=== PATIENT | female | born 1955 | race Caucasian/White ===

== ENCOUNTER 2020-08-21 19:04 | Inpatient (IN) | payer MEDICARE ==
[~2020-08-21] VITALS: Ht 157.5 cm; Wt 80.3 kg
[2020-08-21] MEDS ORDERED: DEXAMETHASONE 4MG/ML 1ML VIAL IV ONE (19:30)
[2020-08-21 20:44] LABS: BG BASE EXCESS 2.8 mmol/L (-2.0-2.0); BG CARBOXYHEMOGLOBIN 0.3 % (0.5-1.5); BG DEOXYHEMOGLOBIN 3.5 % (0.0-5.0); BG FRACTION INSPIRED OXYGEN 44; BG HCO3 ACT 26.6 mmol/L (22.0-26.0); BG METHEMOGLOBIN 0.3 % (0.0-1.5); BG OXYGEN SATURATION 96.5 % (92.0-98.5); BG OXYHEMOGLOBIN 95.9 % (94.0-97.0); BG PCO2 38.3 mmHg (35.0-45.0); BG PH 7.459 (7.350-7.450); BG PO2 84.7 mmHg (75.0-100.0); BG SAMPLE SITE RIGHT RADIAL; BG TOTAL HEMOGLOBIN 15.5 g/dL (12.0-18.0); BG VENT MODE NASAL CANNULA
[2020-08-21 21:00] LABS: HEMATOCRIT. 41.7 % (36.0-48.0); HEMOGLOBIN. 13.7 g/dL (12.0-16.0); MEAN CORPUSCULAR HEMOGLOBIN 28.3 pg (28.0-32.0); MEAN CORPUSCULAR VOLUME 86.5 fL (81.0-99.0); PLATELET 287 x1000/uL (130-400); RED BLOOD CELL COUNT 4.82 mill/uL (4.2-5.4); RED CELL DISTRIBUTION WIDTH 14.2 % (11.6-14.6)
[2020-08-21 21:10] LABS: CHLORIDE 104 mEq/L (98-107); INR 0.9; PROTHROMBIN TIME 9.8 sec (9.6-11.0)
[2020-08-21 21:28] LABS: PLATELET ESTIMATE NORMAL
[2020-08-21 21:38] LABS: CLARITY URINE CLOUDY (CLEAR); COLOR URINE YELLOW (YELLOW); KETONES URINE TRACE (NEGATIVE); LEUKOCYTE ESTERASE URINE NEGATIVE (NEGATIVE); NITRITE URINE NEGATIVE (NEGATIVE); OCCULT BLOOD URINE NEGATIVE (NEGATIVE); PROTEIN URINE 2+ (NEGATIVE); SPECIFIC GRAVITY URINE 1.035 (1.005-1.030)
[2020-08-21] MEDS ORDERED: CEFTRIAXONE 1 G PREMIX 50 ML IV ONE (22:45)
[2020-08-21] MEDS ORDERED: AZITHROMYCIN 500 MG TABLET PO ONE (22:45)
[2020-08-22] MEDS ORDERED: LORAZEPAM 2MG/ML CPJ IV PRN (07:00)
[2020-08-22] MEDS ORDERED: ONDANSETRON HCL 4MG/2ML INJ IV PRN (07:00)
[2020-08-22] MEDS ORDERED: DIPHENHYDRAMINE 50MG/ML VIAL IV PRN (07:00)
[2020-08-22] MEDS ORDERED: HYDROCODONE/ACETAMINOPHEN 5/325MG TABLET PO PRN (07:00)
[2020-08-22] MEDS ORDERED: MAGNESIUM/ALUMINUM HYDROXIDE/SIMETHICONE 30ML UDC PO PRN (07:00)
[2020-08-22] MEDS ORDERED: MORPHINE SULFATE 2 MG/ML CPJ (NOT FOR IM USE) IV PRN (07:00)
[2020-08-22] MEDS ORDERED: CLONIDINE 0.1MG TABLET PO PRN (07:00)
[2020-08-22] MEDS ORDERED: ACETAMINOPHEN 325MG TABLET PO PRN (07:00)
[2020-08-22] MEDS ORDERED: ALBUTEROL 6.7GM HFA INHALER ORI PRN (07:00)
[2020-08-22] MEDS ORDERED: DOCUSATE SODIUM 100MG CAPSULE PO PRN (07:00)
[2020-08-22] MEDS: DEXAMETHASONE 10 MG/ML VIAL IV SCH (08:25)
[2020-08-22] MEDS: ENOXAPARIN 40MG/0.4ML SYR SUBCUT SCH (08:25)
[2020-08-22] MEDS ORDERED: CEFTRIAXONE 1 G PREMIX 50 ML IV SCH (09:00)
[2020-08-22 12:00] VITALS: BP 99/169
[2020-08-22 12:30] VITALS: BP 99/69
[2020-08-22] MEDS: SODIUM CHLORIDE 0.9% INJ 3ML FLUSH IVF SCH ×2 (14:00→21:31)
[2020-08-22] MEDS: ZINC SULFATE 220 MG ( 50 ) CAPSULE PO SCH (19:10)
[2020-08-22] MEDS: ERGOCALCIFEROL 50000UNITS CAPSULE PO SCH (19:10)
[2020-08-22 20:00] VITALS: BP 117/62
[2020-08-22] MEDS: ASCORBIC ACID 500 MG TABLET PO SCH (21:30)
[2020-08-22] MEDS ORDERED: AZITHROMYCIN 500 MG in DEXT 5% WATER 250 ML IV SCH (22:00)
[2020-08-23] VITALS: BP 126/65
[2020-08-23] MEDS: AZITHROMYCIN 500MG in DEXTROSE 5% WATER 250ML IV SCH ×2 (00:09→21:54)
[2020-08-23] MEDS: CEFTRIAXONE 1,000 MG in DEXTROSE 5% WATER 50 ML IV SCH ×2 (02:01→21:53)
[2020-08-23 04:00] VITALS: BP 97/50
[2020-08-23 06:05] LABS: HEMATOCRIT. 36.6 % (36.0-48.0); HEMOGLOBIN. 12.2 g/dL (12.0-16.0); MEAN CORPUSCULAR HEMOGLOBIN 28.9 pg (28.0-32.0); MEAN CORPUSCULAR VOLUME 86.7 fL (81.0-99.0); MEAN PLATELET VOLUME 9.3 fl (7.4-10.4); PLATELET 295 x1000/uL (130-400); RED BLOOD CELL COUNT 4.22 mill/uL (4.2-5.4); RED CELL DISTRIBUTION WIDTH 14.2 % (11.6-14.6)
[2020-08-23 06:07] LABS: CHLORIDE 105 mEq/L (98-107)
[2020-08-23] MEDS: SODIUM CHLORIDE 0.9% INJ 3ML FLUSH IVF SCH ×3 (06:59→21:53)
[2020-08-23 08:00] VITALS: BP 108/51
[2020-08-23] MEDS: ENOXAPARIN 40MG/0.4ML SYR SUBCUT SCH (09:37)
[2020-08-23] MEDS: ASCORBIC ACID 500 MG TABLET PO SCH ×2 (09:37→21:52)
[2020-08-23] MEDS: ZINC SULFATE 220 MG ( 50 ) CAPSULE PO SCH (09:37)
[2020-08-23] MEDS: GUAIFENESIN 200MG/10ML SUGAR FREE UDC PO PRN (09:44)
[2020-08-23] MEDS: DEXAMETHASONE 10 MG/ML VIAL IV SCH (09:44)
[2020-08-23 11:44] VITALS: BP 113/59
[2020-08-23 14:51] LABS: PLATELET ESTIMATE NORMAL
[2020-08-23 16:00] VITALS: BP 121/73
[2020-08-23 20:00] VITALS: BP 123/69
[2020-08-24] VITALS: BP 118/65
[2020-08-24 04:00] VITALS: BP 133/74
[2020-08-24] MEDS: SODIUM CHLORIDE 0.9% INJ 3ML FLUSH IVF SCH ×3 (05:48→21:48)
[2020-08-24 08:00] VITALS: BP 130/46
[2020-08-24] MEDS: ZINC SULFATE 220 MG ( 50 ) CAPSULE PO SCH (09:45)
[2020-08-24] MEDS: ASCORBIC ACID 500 MG TABLET PO SCH ×2 (09:45→21:48)
[2020-08-24] MEDS: DEXAMETHASONE 10 MG/ML VIAL IV SCH (09:45)
[2020-08-24] MEDS: ENOXAPARIN 40MG/0.4ML SYR SUBCUT SCH (11:25)
[2020-08-24 12:00] VITALS: BP 131/71
[2020-08-24 16:00] VITALS: BP 141/65
[2020-08-24 20:00] VITALS: BP 139/75
[2020-08-24] MEDS: AZITHROMYCIN 500MG in DEXTROSE 5% WATER 250ML IV SCH (22:40)
[2020-08-24] MEDS: CEFTRIAXONE 1,000 MG in DEXTROSE 5% WATER 50 ML IV SCH (22:40)
[2020-08-25] VITALS: BP 134/70
[2020-08-25 04:00] VITALS: BP 152/71
[2020-08-25] MEDS: SODIUM CHLORIDE 0.9% INJ 3ML FLUSH IVF SCH ×3 (05:09→20:10)
[2020-08-25 06:33] LABS: CHLORIDE 101 mEq/L (98-107)
[2020-08-25 06:57] LABS: HEMATOCRIT. 42.5 % (36.0-48.0); MEAN CORPUSCULAR HEMOGLOBIN 28.1 pg (28.0-32.0); MEAN CORPUSCULAR VOLUME 84.9 fL (81.0-99.0); MEAN PLATELET VOLUME 8.7 fl (7.4-10.4); PLATELET 445 x1000/uL (130-400)
[2020-08-25 08:00] VITALS: BP 130/64
[2020-08-25] MEDS: ZINC SULFATE 220 MG ( 50 ) CAPSULE PO SCH (10:25)
[2020-08-25] MEDS: ASCORBIC ACID 500 MG TABLET PO SCH ×2 (10:26→20:10)
[2020-08-25] MEDS: ENOXAPARIN 40MG/0.4ML SYR SUBCUT SCH (10:26)
[2020-08-25] MEDS: DEXAMETHASONE 10 MG/ML VIAL IV SCH (10:26)
[2020-08-25 12:00] VITALS: BP 125/84
[2020-08-25 16:00] VITALS: BP 128/80
[2020-08-25 17:05] LABS: PLATELET ESTIMATE INCREASED
[2020-08-25 20:00] VITALS: BP 132/62
[2020-08-25] MEDS: CEFTRIAXONE 1,000 MG in DEXTROSE 5% WATER 50 ML IV SCH (23:27)
[2020-08-25] MEDS: AZITHROMYCIN 500MG in DEXTROSE 5% WATER 250ML IV SCH (23:28)
[2020-08-26] VITALS (7 sets, daily range): BP systolic 121–162; BP diastolic 65–76
[2020-08-26] MEDS: SODIUM CHLORIDE 0.9% INJ 3ML FLUSH IVF SCH ×3 (05:03→20:23)
[2020-08-26] MEDS: ENOXAPARIN 40MG/0.4ML SYR SUBCUT SCH (10:10)
[2020-08-26] MEDS: ASCORBIC ACID 500 MG TABLET PO SCH ×2 (10:11→20:23)
[2020-08-26] MEDS: ZINC SULFATE 220 MG ( 50 ) CAPSULE PO SCH (10:11)
[2020-08-26] MEDS: DEXAMETHASONE 10 MG/ML VIAL IV SCH (10:11)
[2020-08-27] VITALS: BP 119/72
[2020-08-27 04:00] VITALS: BP 122/71
[2020-08-27] MEDS: SODIUM CHLORIDE 0.9% INJ 3ML FLUSH IVF SCH ×3 (06:07→20:40)
[2020-08-27 08:00] VITALS: BP 131/96
[2020-08-27] MEDS: ASCORBIC ACID 500 MG TABLET PO SCH ×2 (09:00→20:40)
[2020-08-27] MEDS: DEXAMETHASONE 10 MG/ML VIAL IV SCH (10:20)
[2020-08-27] MEDS: ENOXAPARIN 40MG/0.4ML SYR SUBCUT SCH (10:21)
[2020-08-27] MEDS: ZINC SULFATE 220 MG ( 50 ) CAPSULE PO SCH (10:21)
[2020-08-27 12:00] VITALS: BP_SYST 106; BP_SYST 136; BP_DIAS 53; BP_DIAS 89
[2020-08-27 16:00] VITALS: BP_SYST 109; BP_SYST 126; BP_DIAS 57; BP_DIAS 60
[2020-08-27 20:00] VITALS: BP 123/51
[2020-08-28] VITALS: BP 123/64
[2020-08-28 04:00] VITALS: BP 107/43
[2020-08-28] MEDS: SODIUM CHLORIDE 0.9% INJ 3ML FLUSH IVF SCH ×3 (06:13→20:21)
[2020-08-28 08:00] VITALS: BP 115/63
[2020-08-28] MEDS: DEXAMETHASONE 10 MG/ML VIAL IV SCH (09:33)
[2020-08-28] MEDS: ZINC SULFATE 220 MG ( 50 ) CAPSULE PO SCH (09:33)
[2020-08-28] MEDS: GUAIFENESIN 200MG/10ML SUGAR FREE UDC PO PRN ×2 (09:33→17:23)
[2020-08-28] MEDS: ENOXAPARIN 40MG/0.4ML SYR SUBCUT SCH (09:34)
[2020-08-28] MEDS: ASCORBIC ACID 500 MG TABLET PO SCH ×2 (09:34→20:20)
[2020-08-28] MEDS ORDERED: SODIUM CHLORIDE 45ML SPRAY NS PRN (11:00)
[2020-08-28 16:00] VITALS: BP 124/68
[2020-08-28 20:00] VITALS: BP 139/67
[2020-08-29] VITALS: BP 138/66
[2020-08-29 04:00] VITALS: BP 112/55
[2020-08-29] MEDS: SODIUM CHLORIDE 0.9% INJ 3ML FLUSH IVF SCH ×3 (06:31→22:00)
[2020-08-29 07:02] LABS: HEMATOCRIT. 39.8 % (36.0-48.0); HEMOGLOBIN. 13.5 g/dL (12.0-16.0); MEAN CORPUSCULAR HEMOGLOBIN 29.2 pg (28.0-32.0); MEAN CORPUSCULAR VOLUME 86.1 fL (81.0-99.0); MEAN PLATELET VOLUME 8.5 fl (7.4-10.4); PLATELET 614 x1000/uL (130-400); RED BLOOD CELL COUNT 4.62 mill/uL (4.2-5.4); RED CELL DISTRIBUTION WIDTH 13.6 % (11.6-14.6)
[2020-08-29 07:15] LABS: CHLORIDE 102 mEq/L (98-107)
[2020-08-29 08:00] VITALS: BP 116/53
[2020-08-29] MEDS: ZINC SULFATE 220 MG ( 50 ) CAPSULE PO SCH (08:17)
[2020-08-29] MEDS: DEXAMETHASONE 10 MG/ML VIAL IV SCH (08:17)
[2020-08-29] MEDS: ASCORBIC ACID 500 MG TABLET PO SCH ×2 (08:17→20:24)
[2020-08-29] MEDS: ENOXAPARIN 40MG/0.4ML SYR SUBCUT SCH (08:18)
[2020-08-29 12:00] VITALS: BP 104/60
[2020-08-29 16:00] VITALS: BP 115/46
[2020-08-29] MEDS: ERGOCALCIFEROL 50000UNITS CAPSULE PO SCH (17:42)
[2020-08-29 20:00] VITALS: BP 100/54
[2020-08-29 20:16] LABS: PLATELET ESTIMATE INCREASED
[2020-08-30] VITALS: BP 127/64
[2020-08-30 04:00] VITALS: BP 113/60
[2020-08-30] MEDS: SODIUM CHLORIDE 0.9% INJ 3ML FLUSH IVF SCH ×3 (05:58→21:33)
[2020-08-30 08:00] VITALS: BP 105/53
[2020-08-30] MEDS: ENOXAPARIN 40MG/0.4ML SYR SUBCUT SCH (09:00)
[2020-08-30] MEDS: DEXAMETHASONE 10 MG/ML VIAL IV SCH (09:00)
[2020-08-30] MEDS: ZINC SULFATE 220 MG ( 50 ) CAPSULE PO SCH (10:38)
[2020-08-30] MEDS: ASCORBIC ACID 500 MG TABLET PO SCH ×2 (10:39→21:33)
[2020-08-30 12:00] VITALS: BP 119/59
[2020-08-30 16:00] VITALS: BP 120/60
[2020-08-30 20:00] VITALS: BP 128/70
[2020-08-31] VITALS: BP 119/51
[2020-08-31 04:00] VITALS: BP 95/62
[2020-08-31] MEDS: SODIUM CHLORIDE 0.9% INJ 3ML FLUSH IVF SCH ×3 (05:05→20:37)
[2020-08-31 08:00] VITALS: BP 112/83
[2020-08-31] MEDS: ENOXAPARIN 40MG/0.4ML SYR SUBCUT SCH (08:23)
[2020-08-31] MEDS: ZINC SULFATE 220 MG ( 50 ) CAPSULE PO SCH (08:23)
[2020-08-31] MEDS: DEXAMETHASONE 10 MG/ML VIAL IV SCH (08:23)
[2020-08-31] MEDS: ASCORBIC ACID 500 MG TABLET PO SCH ×2 (08:23→20:36)
[2020-08-31 12:00] VITALS: BP 112/60
[2020-08-31 16:00] VITALS: BP 120/67
[2020-08-31 20:00] VITALS: BP 124/76
[2020-09-01] VITALS (7 sets, daily range): BP systolic 101–125; BP diastolic 40–64
[2020-09-01] MEDS: SODIUM CHLORIDE 0.9% INJ 3ML FLUSH IVF SCH ×3 (06:37→20:49)
[2020-09-01] MEDS: ZINC SULFATE 220 MG ( 50 ) CAPSULE PO SCH (08:57)
[2020-09-01] MEDS: GUAIFENESIN 200MG/10ML SUGAR FREE UDC PO PRN (08:57)
[2020-09-01] MEDS: ENOXAPARIN 40MG/0.4ML SYR SUBCUT SCH (08:57)
[2020-09-01] MEDS: ASCORBIC ACID 500 MG TABLET PO SCH ×2 (08:57→20:49)
[2020-09-01] MEDS: METHYLPREDNISOLONE SOD SUCC 40 MG/ML VIAL IV SCH (19:38)
[2020-09-02 03:56] VITALS: BP 108/53
[2020-09-02] MEDS: SODIUM CHLORIDE 0.9% INJ 3ML FLUSH IVF SCH ×3 (06:00→22:14)
[2020-09-02] MEDS: ENOXAPARIN 40MG/0.4ML SYR SUBCUT SCH (08:11)
[2020-09-02] MEDS: ZINC SULFATE 220 MG ( 50 ) CAPSULE PO SCH (08:11)
[2020-09-02] MEDS: METHYLPREDNISOLONE SOD SUCC 40 MG/ML VIAL IV SCH ×2 (08:11→17:58)
[2020-09-02] MEDS: ASCORBIC ACID 500 MG TABLET PO SCH ×2 (08:11→22:14)
[2020-09-02 12:00] VITALS: BP 113/75
[2020-09-02 16:00] VITALS: BP 116/63
[2020-09-02 20:00] VITALS: BP 107/57
[2020-09-03] VITALS: BP 107/59
[2020-09-03 04:00] VITALS: BP 112/61
[2020-09-03] MEDS: SODIUM CHLORIDE 0.9% INJ 3ML FLUSH IVF SCH ×3 (06:30→20:49)
[2020-09-03 06:33] LABS: HEMATOCRIT. 41.3 % (36.0-48.0); HEMOGLOBIN. 14.1 g/dL (12.0-16.0); MEAN CORPUSCULAR HEMOGLOBIN 29.4 pg (28.0-32.0); MEAN PLATELET VOLUME 9.5 fl (7.4-10.4); PLATELET 410 x1000/uL (130-400); RED CELL DISTRIBUTION WIDTH 13.7 % (11.6-14.6)
[2020-09-03 06:49] LABS: CHLORIDE 100 mEq/L (98-107)
[2020-09-03 08:00] VITALS: BP 119/56
[2020-09-03] MEDS: ENOXAPARIN 40MG/0.4ML SYR SUBCUT SCH (08:40)
[2020-09-03] MEDS: ASCORBIC ACID 500 MG TABLET PO SCH ×2 (08:40→20:48)
[2020-09-03] MEDS: ZINC SULFATE 220 MG ( 50 ) CAPSULE PO SCH (08:40)
[2020-09-03] MEDS: METHYLPREDNISOLONE SOD SUCC 40 MG/ML VIAL IV SCH ×2 (08:40→17:10)
[2020-09-03 12:00] VITALS: BP 123/62
[2020-09-03 14:12] LABS: PLATELET ESTIMATE INCREASED
[2020-09-03 16:00] VITALS: BP 125/60
[2020-09-03 20:00] VITALS: BP 122/68
[2020-09-04] VITALS: BP 124/47
[2020-09-04 04:00] VITALS: BP 124/39
[2020-09-04] MEDS: SODIUM CHLORIDE 0.9% INJ 3ML FLUSH IVF SCH ×3 (05:24→22:06)
[2020-09-04 08:00] VITALS: BP 125/61
[2020-09-04] MEDS: ENOXAPARIN 40MG/0.4ML SYR SUBCUT SCH (10:26)
[2020-09-04] MEDS: ZINC SULFATE 220 MG ( 50 ) CAPSULE PO SCH (10:26)
[2020-09-04] MEDS: ASCORBIC ACID 500 MG TABLET PO SCH ×2 (10:26→20:39)
[2020-09-04] MEDS: METHYLPREDNISOLONE SOD SUCC 40 MG/ML VIAL IV SCH ×2 (10:27→18:26)
[2020-09-04 12:00] VITALS: BP 131/58
[2020-09-04 16:00] VITALS: BP 125/61
[2020-09-04 20:00] VITALS: BP 117/40
[2020-09-05] VITALS: BP 107/47
[2020-09-05 04:00] VITALS: BP 124/63
[2020-09-05] MEDS: SODIUM CHLORIDE 0.9% INJ 3ML FLUSH IVF SCH ×3 (05:21→21:00)
[2020-09-05 08:00] VITALS: BP 107/45
[2020-09-05] MEDS: ENOXAPARIN 40MG/0.4ML SYR SUBCUT SCH (08:42)
[2020-09-05] MEDS: ASCORBIC ACID 500 MG TABLET PO SCH ×2 (08:42→21:00)
[2020-09-05] MEDS: METHYLPREDNISOLONE SOD SUCC 40 MG/ML VIAL IV SCH ×2 (08:42→17:56)
[2020-09-05] MEDS: ZINC SULFATE 220 MG ( 50 ) CAPSULE PO SCH (08:42)
[2020-09-05 12:00] VITALS: BP 129/44
[2020-09-05 16:50] VITALS: BP 137/71
[2020-09-05] MEDS: ERGOCALCIFEROL 50000UNITS CAPSULE PO SCH (17:56)
[2020-09-05 20:00] VITALS: BP 139/66
[2020-09-06] VITALS: BP 126/66
[2020-09-06 04:00] VITALS: BP 184/70
[2020-09-06] MEDS: SODIUM CHLORIDE 0.9% INJ 3ML FLUSH IVF SCH ×3 (05:00→21:02)
[2020-09-06 08:00] VITALS: BP 120/64
[2020-09-06] MEDS: ZINC SULFATE 220 MG ( 50 ) CAPSULE PO SCH (09:41)
[2020-09-06] MEDS: ASCORBIC ACID 500 MG TABLET PO SCH ×2 (09:41→20:45)
[2020-09-06] MEDS: METHYLPREDNISOLONE SOD SUCC 40 MG/ML VIAL IV SCH ×2 (09:41→16:40)
[2020-09-06] MEDS: ENOXAPARIN 40MG/0.4ML SYR SUBCUT SCH (09:42)
[2020-09-06 12:00] VITALS: BP 114/67
[2020-09-06 16:00] VITALS: BP 13/58
[2020-09-06 20:00] VITALS: BP 133/71
[2020-09-07] VITALS: BP 128/80
[2020-09-07 04:00] VITALS: BP 138/56
[2020-09-07] MEDS: SODIUM CHLORIDE 0.9% INJ 3ML FLUSH IVF SCH ×2 (05:49→13:13)
[2020-09-07 08:00] VITALS: BP 130/64
[2020-09-07] MEDS: ASCORBIC ACID 500 MG TABLET PO SCH (08:39)
[2020-09-07] MEDS: ENOXAPARIN 40MG/0.4ML SYR SUBCUT SCH (08:39)
[2020-09-07] MEDS: METHYLPREDNISOLONE SOD SUCC 40 MG/ML VIAL IV SCH ×2 (08:39→18:43)
[2020-09-07] MEDS: ZINC SULFATE 220 MG ( 50 ) CAPSULE PO SCH (08:39)
[2020-09-07 12:00] VITALS: BP 118/62
[2020-09-07 16:00] VITALS: BP 99/48
[2020-09-07 20:00] VITALS: BP 122/45
[2020-09-08] VITALS: BP 117/50
[2020-09-08] MEDS: ASCORBIC ACID 500 MG TABLET PO SCH ×3 (01:13→21:37)
[2020-09-08] MEDS: SODIUM CHLORIDE 0.9% INJ 3ML FLUSH IVF SCH ×4 (01:13→21:38)
[2020-09-08 04:00] VITALS: BP 119/60
[2020-09-08 08:00] VITALS: BP 93/72
[2020-09-08] MEDS: ENOXAPARIN 40MG/0.4ML SYR SUBCUT SCH (09:54)
[2020-09-08] MEDS: METHYLPREDNISOLONE SOD SUCC 40 MG/ML VIAL IV SCH ×2 (09:55→13:37)
[2020-09-08] MEDS: ZINC SULFATE 220 MG ( 50 ) CAPSULE PO SCH (09:55)
[2020-09-08 12:00] VITALS: BP 116/62
[2020-09-08 16:00] VITALS: BP 113/49
[2020-09-08 20:00] VITALS: BP 134/50
[2020-09-09] VITALS: BP 111/67
[2020-09-09 04:00] VITALS: BP 97/64
[2020-09-09] MEDS: SODIUM CHLORIDE 0.9% INJ 3ML FLUSH IVF SCH ×3 (06:07→21:05)
[2020-09-09 08:00] VITALS: BP 117/55
[2020-09-09] MEDS: ZINC SULFATE 220 MG ( 50 ) CAPSULE PO SCH (09:20)
[2020-09-09] MEDS: ENOXAPARIN 40MG/0.4ML SYR SUBCUT SCH (09:20)
[2020-09-09] MEDS: ASCORBIC ACID 500 MG TABLET PO SCH ×2 (09:20→21:05)
[2020-09-09] MEDS: METHYLPREDNISOLONE SOD SUCC 40 MG/ML VIAL IV SCH ×2 (09:20→16:46)
[2020-09-09 12:00] VITALS: BP 107/46
[2020-09-09 16:00] VITALS: BP 132/57
[2020-09-09 20:00] VITALS: BP 109/64
[2020-09-10] VITALS: BP 98/65
[2020-09-10 04:00] VITALS: BP 127/68
[2020-09-10] MEDS: SODIUM CHLORIDE 0.9% INJ 3ML FLUSH IVF SCH ×3 (06:23→20:37)
[2020-09-10 08:00] VITALS: BP 118/68
[2020-09-10] MEDS: METHYLPREDNISOLONE SOD SUCC 40 MG/ML VIAL IV SCH ×2 (08:05→16:40)
[2020-09-10] MEDS: ASCORBIC ACID 500 MG TABLET PO SCH ×2 (08:05→20:35)
[2020-09-10] MEDS: ZINC SULFATE 220 MG ( 50 ) CAPSULE PO SCH (08:05)
[2020-09-10] MEDS: ENOXAPARIN 40MG/0.4ML SYR SUBCUT SCH (08:06)
[2020-09-10 12:00] VITALS: BP 117/73
[2020-09-10 16:00] VITALS: BP 126/64
[2020-09-10 20:00] VITALS: BP 116/66
[2020-09-11] VITALS: BP 131/66
[2020-09-11 04:00] VITALS: BP 126/69
[2020-09-11] MEDS: SODIUM CHLORIDE 0.9% INJ 3ML FLUSH IVF SCH ×3 (06:38→19:59)
[2020-09-11 08:00] VITALS: BP 125/51
[2020-09-11] MEDS: ZINC SULFATE 220 MG ( 50 ) CAPSULE PO SCH (08:28)
[2020-09-11] MEDS: ASCORBIC ACID 500 MG TABLET PO SCH ×2 (08:28→19:59)
[2020-09-11] MEDS: METHYLPREDNISOLONE SOD SUCC 40 MG/ML VIAL IV SCH ×2 (08:28→16:53)
[2020-09-11] MEDS: ENOXAPARIN 40MG/0.4ML SYR SUBCUT SCH (08:33)
[2020-09-11 12:00] VITALS: BP 129/54
[2020-09-11 20:00] VITALS: BP 117/57
[2020-09-12] VITALS: BP 121/57
[2020-09-12 04:00] VITALS: BP 112/64
[2020-09-12] MEDS: SODIUM CHLORIDE 0.9% INJ 3ML FLUSH IVF SCH ×3 (06:02→20:17)
[2020-09-12 08:00] VITALS: BP 121/61
[2020-09-12] MEDS: ZINC SULFATE 220 MG ( 50 ) CAPSULE PO SCH (08:23)
[2020-09-12] MEDS: ENOXAPARIN 40MG/0.4ML SYR SUBCUT SCH (08:23)
[2020-09-12] MEDS: ASCORBIC ACID 500 MG TABLET PO SCH ×2 (08:23→20:17)
[2020-09-12] MEDS: METHYLPREDNISOLONE SOD SUCC 40 MG/ML VIAL IV SCH ×2 (08:23→17:48)
[2020-09-12 12:00] VITALS: BP 114/52
[2020-09-12 16:00] VITALS: BP 129/71
[2020-09-12] MEDS: ERGOCALCIFEROL 50000UNITS CAPSULE PO SCH (17:47)
[2020-09-12 20:00] VITALS: BP 138/66
[2020-09-13] VITALS: BP 134/65
[2020-09-13 04:00] VITALS: BP 128/67
[2020-09-13] MEDS: SODIUM CHLORIDE 0.9% INJ 3ML FLUSH IVF SCH ×3 (05:45→21:33)
[2020-09-13 07:32] VITALS: BP 122/69
[2020-09-13] MEDS: ZINC SULFATE 220 MG ( 50 ) CAPSULE PO SCH (10:02)
[2020-09-13] MEDS: METHYLPREDNISOLONE SOD SUCC 40 MG/ML VIAL IV SCH ×2 (10:02→18:12)
[2020-09-13] MEDS: ASCORBIC ACID 500 MG TABLET PO SCH ×2 (10:03→21:33)
[2020-09-13 12:00] VITALS: BP 112/52
[2020-09-13] MEDS: ENOXAPARIN 40MG/0.4ML SYR SUBCUT SCH (12:20)
[2020-09-13 14:34] LABS: BG CARBOXYHEMOGLOBIN 0.6 % (0.5-1.5); BG DEOXYHEMOGLOBIN 11.2 % (0.0-5.0); BG FRACTION INSPIRED OXYGEN 21; BG HCO3 ACT 26.5 mmol/L (22.0-26.0); BG METHEMOGLOBIN 0.3 % (0.0-1.5); BG OXYGEN SATURATION 88.7 % (92.0-98.5); BG OXYHEMOGLOBIN 87.9 % (94.0-97.0); BG PH 7.428 (7.350-7.450); BG SAMPLE SITE RIGHT RADIAL; BG TOTAL HEMOGLOBIN 14.5 g/dL (12.0-18.0); BG VENT MODE ROOM AIR
[2020-09-13 16:00] VITALS: BP 118/65
[2020-09-13 20:00] VITALS: BP 126/66
[2020-09-14] VITALS: BP 127/62
[2020-09-14 04:00] VITALS: BP 126/66
[2020-09-14] MEDS: SODIUM CHLORIDE 0.9% INJ 3ML FLUSH IVF SCH ×3 (06:35→22:29)
[2020-09-14] MEDS: METHYLPREDNISOLONE SOD SUCC 40 MG/ML VIAL IV SCH (08:58)
[2020-09-14] MEDS: ASCORBIC ACID 500 MG TABLET PO SCH ×2 (08:59→22:29)
[2020-09-14] MEDS: ENOXAPARIN 40MG/0.4ML SYR SUBCUT SCH (08:59)
[2020-09-14] MEDS: ZINC SULFATE 220 MG ( 50 ) CAPSULE PO SCH (09:00)
[2020-09-14 12:00] VITALS: BP 127/62
[2020-09-14] MEDS: PREDNISONE 20MG TABLET PO SCH (13:58)
[2020-09-14 16:00] VITALS: BP 122/70
[2020-09-14 20:00] VITALS: BP 118/57
[2020-09-15] VITALS: BP 114/59
[2020-09-15 04:00] VITALS: BP 128/68
[2020-09-15] MEDS: SODIUM CHLORIDE 0.9% INJ 3ML FLUSH IVF SCH ×3 (05:48→22:21)
[2020-09-15 08:07] VITALS: BP 130/70
[2020-09-15] MEDS: ENOXAPARIN 40MG/0.4ML SYR SUBCUT SCH (08:16)
[2020-09-15] MEDS: ASCORBIC ACID 500 MG TABLET PO SCH ×2 (08:16→22:21)
[2020-09-15] MEDS: PREDNISONE 20MG TABLET PO SCH (08:16)
[2020-09-15] MEDS: ZINC SULFATE 220 MG ( 50 ) CAPSULE PO SCH (08:16)
[2020-09-15 09:29] LABS: CHLORIDE 104 mEq/L (98-107)
[2020-09-15 09:35] LABS: EOSINOPHILS % 0.3 % (0.0-5.0); HEMATOCRIT. 44.6 % (36.0-48.0); HEMOGLOBIN. 14.7 g/dL (12.0-16.0); LYMPHOCYTES % 12.9 % (20.0-50.0); MEAN CORPUSCULAR HEMOGLOBIN 28.8 pg (28.0-32.0); MEAN CORPUSCULAR VOLUME 87.4 fL (81.0-99.0); MEAN PLATELET VOLUME 8.9 fl (7.4-10.4); MONOCYTES % 5.2 % (2.0-8.0); NEUTROPHILS % 81.6 % (40.0-76.0); PLATELET 284 x1000/uL (130-400); RED CELL DISTRIBUTION WIDTH 15.8 % (11.6-14.6)
[2020-09-15 11:45] VITALS: BP_SYST 118; BP_SYST 76; BP_DIAS 70
[2020-09-15 15:48] VITALS: BP 120/70
[2020-09-15 20:00] VITALS: BP 103/51
[2020-09-16] VITALS (7 sets, daily range): BP systolic 90–125; BP diastolic 42–68
[2020-09-16] MEDS: SODIUM CHLORIDE 0.9% INJ 3ML FLUSH IVF SCH ×3 (05:40→21:59)
[2020-09-16] MEDS: ASCORBIC ACID 500 MG TABLET PO SCH ×2 (10:07→21:59)
[2020-09-16] MEDS: PREDNISONE 20MG TABLET PO SCH (10:08)
[2020-09-16] MEDS: ZINC SULFATE 220 MG ( 50 ) CAPSULE PO SCH (10:08)
[2020-09-16] MEDS: ENOXAPARIN 40MG/0.4ML SYR SUBCUT SCH (10:09)
[2020-09-16] MEDS ORDERED: ALBUTEROL (0.083%) 2.5MG/3ML NEB HHN PRN (11:45)
[2020-09-17] VITALS (7 sets, daily range): BP systolic 99–146; BP diastolic 44–65
[2020-09-17] MEDS: SODIUM CHLORIDE 0.9% INJ 3ML FLUSH IVF SCH ×3 (05:55→21:49)
[2020-09-17] MEDS: ASCORBIC ACID 500 MG TABLET PO SCH ×2 (09:11→21:48)
[2020-09-17] MEDS: ZINC SULFATE 220 MG ( 50 ) CAPSULE PO SCH (09:11)
[2020-09-17] MEDS: ENOXAPARIN 40MG/0.4ML SYR SUBCUT SCH (09:12)
[2020-09-17] MEDS: PREDNISONE 20MG TABLET PO SCH (10:40)
[2020-09-17] MEDS ORDERED: POTASSIUM CHLORIDE 20MEQ TABLET SR PO NR (21:00)
[2020-09-18] VITALS: BP 101/66
[2020-09-18 04:00] VITALS: BP 108/59
[2020-09-18] MEDS: SODIUM CHLORIDE 0.9% INJ 3ML FLUSH IVF SCH ×3 (06:03→22:00)
[2020-09-18 08:00] VITALS: BP 106/54
[2020-09-18] MEDS: PREDNISONE 10MG TABLET PO SCH (08:37)
[2020-09-18] MEDS: ASCORBIC ACID 500 MG TABLET PO SCH ×2 (08:37→22:00)
[2020-09-18] MEDS: ENOXAPARIN 40MG/0.4ML SYR SUBCUT SCH (08:38)
[2020-09-18] MEDS: ZINC SULFATE 220 MG ( 50 ) CAPSULE PO SCH (08:38)
[2020-09-18 12:00] VITALS: BP 109/73
[2020-09-18 16:00] VITALS: BP 101/59
[2020-09-19] MEDS: SODIUM CHLORIDE 0.9% INJ 3ML FLUSH IVF SCH ×2 (05:37→14:24)
[2020-09-19 08:00] VITALS: BP 108/55
[2020-09-19] MEDS: ZINC SULFATE 220 MG ( 50 ) CAPSULE PO SCH (09:20)
[2020-09-19] MEDS: PREDNISONE 10MG TABLET PO SCH (09:20)
[2020-09-19] MEDS: ASCORBIC ACID 500 MG TABLET PO SCH (09:20)
[2020-09-19] MEDS: ENOXAPARIN 40MG/0.4ML SYR SUBCUT SCH (09:21)
[2020-09-19 12:00] VITALS: BP 104/80
[2020-09-19 16:00] VITALS: BP 117/60
[2020-09-19] MEDS: ERGOCALCIFEROL 50000UNITS CAPSULE PO SCH (18:01)
[2020-09-19 20:00] VITALS: BP 112/54
[2020-09-20] VITALS: BP 108/57
[2020-09-20] MEDS ORDERED: ASCORBIC ACID 500 MG TABLET PO SCH
[2020-09-20 04:00] VITALS: BP 101/57
[2020-09-20 08:00] VITALS: BP 110/59
[2020-09-20] MEDS: PREDNISONE 10MG TABLET PO SCH (09:53)
[2020-09-20] MEDS: ENOXAPARIN 40MG/0.4ML SYR SUBCUT SCH (09:54)
[2020-09-20 12:00] VITALS: BP 109/59
[2020-09-20 16:00] VITALS: BP 102/63
[2020-09-20 20:00] VITALS: BP 111/64
[2020-09-21] VITALS (7 sets, daily range): BP systolic 96–117; BP diastolic 51–65
[2020-09-21] MEDS: ENOXAPARIN 40MG/0.4ML SYR SUBCUT SCH (08:53)
[2020-09-21 18:42] LABS: BG CARBOXYHEMOGLOBIN 0.7 % (0.5-1.5); BG DEOXYHEMOGLOBIN 9.9 % (0.0-5.0); BG FRACTION INSPIRED OXYGEN 21; BG HCO3 ACT 29.2 mmol/L (22.0-26.0); BG METHEMOGLOBIN 0.4 % (0.0-1.5); BG PCO2 45.6 mmHg (35.0-45.0); BG PH 7.424 (7.350-7.450); BG PO2 55.5 mmHg (75.0-100.0); BG SAMPLE SITE RIGHT RADIAL; BG TOTAL HEMOGLOBIN 14.6 g/dL (12.0-18.0); BG VENT MODE ROOM AIR
[2020-09-22 05:11] VITALS: BP 97/55
[2020-09-22 07:59] LABS: BASOPHILS % 1.3 % (0.0-2.0); HEMATOCRIT. 40.8 % (36.0-48.0); HEMOGLOBIN. 13.3 g/dL (12.0-16.0); LYMPHOCYTES % 14.9 % (20.0-50.0); MEAN CORPUSCULAR HEMOGLOBIN 28.7 pg (28.0-32.0); MEAN CORPUSCULAR VOLUME 87.9 fL (81.0-99.0); MEAN PLATELET VOLUME 8.3 fl (7.4-10.4); MONOCYTES % 6.6 % (2.0-8.0); NEUTROPHILS % 73.2 % (40.0-76.0); PLATELET 246 x1000/uL (130-400); RED BLOOD CELL COUNT 4.64 mill/uL (4.2-5.4); RED CELL DISTRIBUTION WIDTH 16.6 % (11.6-14.6)
[2020-09-22 08:00] VITALS: BP 120/70
[2020-09-22 08:06] LABS: CHLORIDE 104 mEq/L (98-107)
[2020-09-22] MEDS: ENOXAPARIN 40MG/0.4ML SYR SUBCUT SCH (09:02)
[2020-09-22] MEDS: GUAIFENESIN-DM 200MG-20MG/10ML UDC PO PRN (11:55)
[2020-09-22 12:00] VITALS: BP 99/52
[2020-09-22 16:00] VITALS: BP 105/55
[2020-09-22 20:41] VITALS: BP 102/54
[2020-09-23 00:05] VITALS: BP 109/53
[2020-09-23 05:07] VITALS: BP 94/48
[2020-09-23 08:00] VITALS: BP 117/61
[2020-09-23] MEDS: ENOXAPARIN 40MG/0.4ML SYR SUBCUT SCH (09:11)
[2020-09-23 12:00] VITALS: BP 100/52
[2020-09-23] MEDS: GUAIFENESIN-DM 200MG-20MG/10ML UDC PO PRN ×2 (13:58→21:18)
[2020-09-23 16:00] VITALS: BP 106/57
[2020-09-23] MEDS ORDERED: IPRATROPIUM/ALBUTEROL 0.5-3(2.5)MG/3ML NEB HHN PRN (18:15)
[2020-09-23 20:00] VITALS: BP 112/69
[2020-09-24] VITALS: BP_SYST 101; BP_SYST 125; BP_DIAS 59; BP_DIAS 82
[2020-09-24] MEDS: IPRATROPIUM/ALBUTEROL 0.5-3(2.5)MG/3ML NEB HHN SCH ×4 (01:47→20:34)
[2020-09-24 04:00] VITALS: BP 100/58
[2020-09-24 08:00] VITALS: BP 98/51
[2020-09-24] MEDS: ENOXAPARIN 40MG/0.4ML SYR SUBCUT SCH (09:43)
[2020-09-24] MEDS: GUAIFENESIN-DM 200MG-20MG/10ML UDC PO PRN ×3 (09:45→20:52)
[2020-09-24 12:06] VITALS: BP 91/47
[2020-09-24 16:00] VITALS: BP 119/100
[2020-09-24] MEDS: LORATADINE 10MG TABLET PO SCH (16:31)
[2020-09-24 20:00] VITALS: BP 103/60
[2020-09-24] MEDS: FLUTICASONE PROPIONATE 50MCG/SPRAY BOTTLE BOTHNSTRLS SCH (20:52)
[2020-09-25] VITALS: BP 115/76
[2020-09-25] MEDS: IPRATROPIUM/ALBUTEROL 0.5-3(2.5)MG/3ML NEB HHN SCH ×4 (02:14→19:43)
[2020-09-25 04:00] VITALS: BP 100/49
[2020-09-25 08:00] VITALS: BP 99/46
[2020-09-25] MEDS: LORATADINE 10MG TABLET PO SCH (09:11)
[2020-09-25] MEDS: GUAIFENESIN-DM 200MG-20MG/10ML UDC PO PRN ×3 (09:11→17:54)
[2020-09-25] MEDS: ENOXAPARIN 40MG/0.4ML SYR SUBCUT SCH (09:12)
[2020-09-25] MEDS: FLUTICASONE PROPIONATE 50MCG/SPRAY BOTTLE BOTHNSTRLS SCH ×2 (09:12→22:17)
[2020-09-25 12:00] VITALS: BP 109/56
[2020-09-25 16:00] VITALS: BP 105/59
[2020-09-25 20:00] VITALS: BP 105/60
[2020-09-26] VITALS: BP 102/56
[2020-09-26] MEDS: IPRATROPIUM/ALBUTEROL 0.5-3(2.5)MG/3ML NEB HHN SCH ×4 (01:04→20:45)
[2020-09-26 04:00] VITALS: BP 99/50
[2020-09-26 08:00] VITALS: BP 107/58
[2020-09-26] MEDS ORDERED: LIDOCAINE HCL/PF 1% 2ML VIAL ONE (09:00)
[2020-09-26] MEDS: GUAIFENESIN-DM 200MG-20MG/10ML UDC PO PRN ×2 (09:21→22:24)
[2020-09-26] MEDS: LORATADINE 10MG TABLET PO SCH (09:21)
[2020-09-26] MEDS: ENOXAPARIN 40MG/0.4ML SYR SUBCUT SCH (09:22)
[2020-09-26] MEDS: FLUTICASONE PROPIONATE 50MCG/SPRAY BOTTLE BOTHNSTRLS SCH ×2 (09:32→21:58)
[2020-09-26 12:00] VITALS: BP 119/72
[2020-09-26 12:24] LABS: BG BASE EXCESS 2.8 mmol/L (-2.0-2.0); BG CARBOXYHEMOGLOBIN 0.7 % (0.5-1.5); BG DEOXYHEMOGLOBIN 7.8 % (0.0-5.0); BG HCO3 ACT 27.4 mmol/L (22.0-26.0); BG METHEMOGLOBIN 0.1 % (0.0-1.5); BG OXYGEN SATURATION 92.1 % (92.0-98.5); BG OXYHEMOGLOBIN 91.4 % (94.0-97.0); BG PCO2 41.9 mmHg (35.0-45.0); BG PH 7.433 (7.350-7.450); BG PO2 59.2 mmHg (75.0-100.0); BG SAMPLE SITE RIGHT RADIAL; BG TOTAL HEMOGLOBIN 13.7 g/dL (12.0-18.0); BG VENT MODE ROOM AIR
[2020-09-26 16:00] VITALS: BP 95/55
[2020-09-27] MEDS: IPRATROPIUM/ALBUTEROL 0.5-3(2.5)MG/3ML NEB HHN SCH ×2 (02:33→09:49)
[2020-09-27 08:00] VITALS: BP 105/62
[2020-09-27] MEDS: ENOXAPARIN 40MG/0.4ML SYR SUBCUT SCH (08:39)
[2020-09-27] MEDS: LORATADINE 10MG TABLET PO SCH (08:39)
[2020-09-27] MEDS: FLUTICASONE PROPIONATE 50MCG/SPRAY BOTTLE BOTHNSTRLS SCH (08:39)
[2020-09-27 12:00] VITALS: BP 102/55
[2020-09-27 15:07] VITALS: BP 122/64
== END 2020-09-27 16:44 | disposition home health service (06) | DRG 871 ==
LOC: ER 19:04 → 7WST 22:37 → ENRESERV 08-22 09:57 → 6WST 09-11 14:00 → 6EST 09-16 11:40
PROVIDERS: ADMIT Internal Medicine; ATTEND Internal Medicine
DX: A41.89 Other specified sepsis (principal); U07.1 COVID-19; J12.82 Pneumonia due to coronavirus disease 2019; J96.01 Acute respiratory failure with hypoxia; N39.0 Urinary tract infection, site not specified; E78.00 Pure hypercholesterolemia, unspecified; E78.5 Hyperlipidemia, unspecified; B97.89 Other viral agents as the cause of diseases classified elsewhere; Z91.018 Allergy to other foods
CPT/HCPCS: 36415; 36600; 71045; 80048; 80053; 81003; 82375; 82728; 82805; 82962; 83605; 83615; 83880; 84145; 84484; 85025; 85379; 86140; 87426; 93005; 93971; 94618; 94640; 97116; 97162; 97166; 99291; C1893; J0456; J0696; J1100; J1650; J2920; J3490; J7040; J7060; J7512; U0003